=== PATIENT | female | born 1950 | race Caucasian/White ===

== ENCOUNTER 2017-01-12 09:36 | Day surgery (SDC) | payer MEDICARE, MEDICAID ==
[2017-01-12] VITALS (8 sets, daily range): BP systolic 118–158; BP diastolic 60–79; PULSE 62–82; RESP 12–16; O2SAT 93–100
[~2017-01-12] VITALS: Ht 166.4 cm; Wt 59.6 kg
[~2017-01-12 09:36] MED LIST: CANA100T PO; CITA40TA13 PO; CLON0.5T PO; Lactated Ringer's 1,000 ML IV ONE; METH5TAB5 PO; MULT-1018 PO; OLAN10TA19 PO; ROSU40TA PO
[2017-01-12] MEDS ORDERED: EPHEDrine/NS 5 mg/mL 5 mL Syringe ONE (09:37)
[2017-01-12] MEDS ORDERED: Rocuronium 10 mg/mL 5 mL Inj ONE (09:37)
[2017-01-12] MEDS ORDERED: Dexamethasone 4 mg/mL Inj ONE (09:37)
[2017-01-12] MEDS ORDERED: Propofol 10,000 mCg/mL 20 mL Inj ONE (09:37)
[2017-01-12] MEDS ORDERED: Ondansetron 2 mg/mL 2 mL Inj ONE (09:37)
[2017-01-12] MEDS ORDERED: fentaNYL-PF 50 mCg/mL 2 mL Inj ONE (09:37)
[2017-01-12] MEDS ORDERED: fentaNYL-PF 50 mCg/mL 2 mL Inj IVPUSH PRN (14:10)
[2017-01-12] MEDS ORDERED: Atropine 0.4 mg/mL Inj IVPUSH PRN (14:10)
[2017-01-12] MEDS ORDERED: Lactated Ringer's 500 ML IV PRN (14:10)
[2017-01-12] MEDS ORDERED: EPHEDrine Sulfate 50 mg/mL Inj IVPUSH PRN (14:10)
[2017-01-12] MEDS ORDERED: Phenylephrine 10,000 mCg/mL Inj IVPUSH PRN (14:10)
[2017-01-12] MEDS ORDERED: Labetalol 5 mg/mL 4 mL Inj IV PRN (14:10)
[2017-01-12] MEDS ORDERED: Lactated Ringer's 1,000 ML IV SCH (14:10)
[2017-01-12] MEDS ORDERED: Ondansetron 2 mg/mL 2 mL Inj IVPUSH PRN (14:10)
[2017-01-12] MEDS ORDERED: MetoCLOpramide 5 mg/mL 2 mL Inj IVPUSH PRN (14:10)
--- NOTE | 2017-01-12 14:10 | PCM.HPANE ---
Patient Data Surgeon Admitting Provider: Attending Provider:Umer Lundberg MD Primary Care Physician:Fabricio Fair MD Other Provider:TonaocMisa Anesthesia Reason for Visit Primary Hyperparathyroidism Ht/WT & BMI Height (Feet): 5 Height (Inches): 5.50 Weight (Kilograms): 59.600 Body Mass Index 21.00 Allergies Coded Allergies: codeine (Verified Allergy, Unknown, nausea/vomiting, 01/05/17) latex (Verified Allergy, Unknown, rash, 01/05/17) Past Anesthesia History Anesthesia History: Denies:: Abnormal Airway, Anesthesia Reactions, Difficult Intubation, Fam Anesthesia Reaction, Fam Malignant Hypertherm, Malignant Hyperthermia Diabetes History Hx Diabetes?: Yes Type of Diabetes: Type II Glycemic Control: Oral Medication Current Bedside Blood Glucose: 101 Medications Home Meds Incl Beta Igor: No Reported Medications Olanzapine 10 Mg [id number] Mg PO HS Ref 0 01/05/17 Multivitamin (Multi Vitamin Daily)1 Each Tablet1 Each PO DAILY 30 Days Ref 0 01/05/17 Methimazole 5 Mg Tablet7.5 Mg PO DAILY 30 Days 01/05/17 Clonazepam (Klonopin)0.5 Mg Tablet0.5-1 Mg PO TID PRN For Anxiety Ref 0 01/05/17 Rosuvastatin Calcium (Crestor)40 Mg [id number] Mg PO HS 30 Days Ref 0 01/05/17 Citalopram 40 Mg [id number] Mg PO DAILY 30 Days Ref 0 01/05/17 Discontinued Reported Medications Canagliflozin (Invokana)100 Mg [id number] Mg PO DAILY 01/05/17 History History of ENT Problems?: No HEENT History: Positive for:: Hearing Problem Denies:: Abnormal Airway Cataracts Difficult Intubation Dysphagia Glaucoma Sinus Problem TMJ Denture Type: None Teeth Condition: Within Normal Limits Hx of Heart Problems?: No Cardiovascular History: Denies:: AICD Abdominal Aortic Aneurism Atrial Fibrillation Cardiac Surgery Chest Pain Congestive Heart Failure Coronary Artery Disease Edema Heart Murmur Hypertension Irregular Heartbeat Pacemaker Peripheral Vascular Rheumatic Fever Thrombophlebitis Valvular Heart Disease Hx of Respiratory Problem?: No Respiratory History: Denies:: Asthma COPD Chest Surgery Cough Dyspnea Emphysema Hemoptysis Oxygen Administration Pneumonia Pulmonary Embolism Tuberculosis Use of C-PAP Machine Use of Inhalers / NEBS Hx Neurologic Problems?: No Neurological History: Denies:: Alzheimer's Disease CVA Dementia Dizziness Headaches Multiple Sclerosis Parkinson's Disease Peripheral Neuropathy Seizures TIA Hx of GI Problems?: No Gastrointestinal History: Denies:: Cirrhosis Diverticulitis Gall Bladder Disease Gastroesphageal Reflux Gastrointestinal Bleeding Heartburn Hepatitis Hiatal Hernia Liver Disease Rectal Bleeding Hx of Problems?: No Genitourinary History: Denies:: HX of Hemodialysis Kidney Stones Urinary Tract Infection HX of Peritoneal Dialysis: No Female Hx: Denies:: Currently Endometriosis Pelvic Inflammatory Problems with Breasts? Skin History: Denies:: History Skin Disorders? Pressure Ulcers Hx Musculoskeletal Problems?: No Musculoskeletal History: Denies:: Back Injury Degenerative Joint Fibromyalgia Joint Replacement Musculoskeletal Trauma Myasthenia Gravis Osteoarthritis Rheumatoid Arthritis Systemic Lupus Psycho Social History: Positive for:: Hx Depression Denies:: Anxiety Bipolar Disorder Suicide Attempt Hx Surgeries?: Yes Hx Any Other Health Problems?: Yes Other History: Positive for:: Endocrine Disease (parathyroid current admission problem) Denies:: Cancer Thyroid Disease (parathyroid) Hx Diabetes: YesBedside Blood Glucose: 101 Have You Smoked inLast 12 mo: Yes Stop/Bang S-Snoring: Do You Snore Loudly: No T-Tired: feel tired, fatigued: No O-Obsered: Observed not breath: No P-Blood Pressure: treated: No B- Body Mass Index > 35 kg/m2: No A- Age over 50: Yes N- Neck Large Circumference: No G- Gender Male: No SUHA Total Score: 1 Risk Assessment Category Category 1A: Patient has history of documented sleep apnea, and HAS NOT received any narcotic, sedative or anesthesia administration during this stay. Category 1B: Patient has history of documented sleep apnea, and HAS received any narcotic , sedative or anesthesia administration during this stay Category 2: Patient has SUSPECTED Obstructive Sleep Apnea, and HAS received any narcotic , sedative or anesthesia administration during this stay. Category 3: Patient has SUSPECTED Obstructive Sleep Apnea and HAS NOT received narcotic, sedative or anesthesia administration during this stay. Category 4: Outpatient in Procedural Areas with known sleep apnea or who screen positive for High Risk via the STOP/BANG questionnaire. Exam Exam Vital Signs Vital Signs Date Time Temp Pulse Resp B/P Pulse Ox O2 Delivery O2 Flow Rate FiO2 01/12/17 10:25 36.6 62 16 157/79 97 Room Air 01/12/17 10:03 36.6 62 16 157/79 97 Room Air General Appearance: Alert, Oriented X3, Cooperative, No Acute Distress HEENT/AIRWAY: MP 2, Neck Movement (FROM), Mouth Opening (3 FBMO) Lungs: Clear to Auscultation, Normal Air Movement Heart: Exam Unremarkable, Regular Rate/Rhythm, No Murmurs/Rubs/Gallops Meds/Labs/Diagnostics Admission Meds Current Medications Lactated Ringer's (Lr) 1,000 ml @ 120 mls/hr [id number] ONCE IV Last administered on 01/12/17t 09:50; Start 01/12/17 at 05:00; Stop 01/12/17 at 13:19 Bedside Blood Glucose: 101 Plan Impression Patient chart reviewed, patient interviewed and anesthestic plan with risks, benefits, and alternatives discussed, and informed consent obtained. NPO per Anesth. Guidelines: Yes ASA Physical Status: ASA2 Mod Systemic Disease Anesthetic Plan: GA Bene/Risks/Altern/Consents: Yes HP Complete Prior to Induction: Yes Rafael Washington MD Jan 12, 2017 12:45
[2017-01-12] MEDS ORDERED: Bupivacaine-MPF 0.5% W/EPI 30 mL Inj INFILTRATE ONE (14:22)
--- NOTE | 2017-01-12 15:22 | PCM.SURGOP ---
Surgical Operative Report Date of Service: Jan 12, 2017 Pre Operative Diagnosis Primary hyperparathyroidism Post Operative Diagnosis Same, right superior parathyroid adenoma Procedure: Parathyroid exploration Surgeon and Disabilities Caregiver: Surgeon: Umer Lundberg MD Assistants: Jesse Natarajan MD PGY-3; Faye Keys DO PGY-1 Indication for Procedure 66-year-old woman who has been diagnosed with primary hyperparathyroidism. Her highest documented PTH was 111, with a calcium of 10.4. She has known osteoporosis, with a T score of -3.0 in the left femoral neck. She has never had a pathologic fracture. She has never had kidney stones. She does admit to some anxiety and depression. Her imaging studies were both suggestive of a right superior parathyroid adenoma on ultrasound and nuclear medicine parathyroid imaging study. She also had a 3.2 cm left inferior thyroid nodule and a right mid thyroid nodule measuring 1.8 cm. Both were biopsied, which came back benign, [place] II. After discussion of risks and benefits, she agreed to proceed with parathyroid exploration. Findings: The right superior parathyroid adenoma was found measuring 2.2 x 1.2 x 0.5 cm. The right inferior parathyroid gland was visualized, which was normal. Procedure Details After smooth induction of general endotracheal anesthesia, she was placed in the modified beachchair position, and was prepped and draped in wide sterile fashion. A procedural pause was performed according to the SCOAP checklist, and all were found to be in agreement. A transverse incision was made in the skin lines below the level of the cricoid cartilage. Dissection was carried down through the subcutaneous tissue until the platysma muscle was divided. Subplatysmal skin flaps were raised superiorly and inferiorly. The median raphae was incised. The right sternal hyoid and sternal thyroid muscles were sequentially elevated off the underlying right thyroid lobe. The right middle thyroid vein was divided with the LigaSure device. Once the right internal jugular vein was identified, a blood sample was drawn from it with a 27-gauge needle, being sent for stat PTH, which came back at 67. The right thyroid lobe was retracted medially. A normal right inferior parathyroid gland was visualized on the posterior surface of the inferior thyroid lobe on the right. Just superior to the right inferior thyroid artery, a right superior parathyroid adenoma was seen. This had a discrete fat plane between it and the right thyroid lobe. It was dissected free from the surrounding tissues with the LigaSure device. It had an obvious blood supply coming off the right inferior thyroid artery off its inferomedial aspect, which was divided with the LigaSure device. Ex vivo, the right superior parathyroid gland measured 2.2 x 1.2 x 0.5 cm. The right recurrent laryngeal nerve was probably visualized posterior to the inferior thyroid artery. Hemostasis was adequate. The right superior parathyroid adenoma was sent for permanent pathology. The midline strap muscles were reapproximated with interrupted 3-0 Vicryl suture. The latissimus muscle was closed with interrupted 3-0 Vicryl suture. The skin incision was closed with a running 4-0 Monocryl subcuticular stitch. Dermabond was applied to the skin as a dressing. At the end of the case all needle and sponge counts were correct 2. The patient was awakened from anesthesia without difficulty, and taken to the recovery room in satisfactory condition, having tolerated the procedure well. A stat PTH will be checked in the recovery room. Complications There were no periprocedural complications identified. Surgical Specimen Removed: Yes Specimen sent to Pathology: Yes Surgical Specimen description: Right superior parathyroid adenoma Anesthetic Plan: GA Grafts, Implants: None Output, Estimated Blood Loss: 10 Blood Administration during benitez: No Drains: None Catheters: None copies to: Vish Roldan MD; Fabricio Fair MD, Joshua D MD Jan 12, 2017 15:22
[2017-01-12] MEDS ORDERED: oxyCODONE-Acetamin 5-325 mg Tablet PO PRN (15:35)
--- NOTE | 2017-01-12 15:39 | PCM.DISURG ---
Surgical Discharge Instruction Date of Service Jan 12, 2017 Dates of Hospitalization Date of Hospital Admission Providers Admitting Physician: Primary Care Physician: Fabricio Fair MD Attending Physician: Umer Lundberg MD Discharge Diagnosis Post Operative diagnosis Same, right superior parathyroid adenoma Diet Discharge Diet: No restrictions Activity Discharge Activity-General: Be up and about, Activity as pain allows, No driving while taking narcotic Dressing and Incisional Care Dressing Instructions: Liquid skin glue will start to peel in 7-10 days Hygiene: May shower, DO NOT soak incision under water, NO bathtub, hot tub or whirlpool Follow Up Plan Follow Up Plan Follow up in the general surgery clinic in 2-3 weeks. Call your provider for: Fever, Chills, Wound redness, Increasing wound pain, Discharge @ incision, pus discharge Janusz Natarajan MD Jan 12, 2017 15:39
--- NOTE | 2017-01-14 11:07 | PATH ---
SURGICAL PATHOLOGY Attending Physician:Shirley Becker CASE STATUS: Signed Out PATIENT NAME: THU MCNEAL PID: [id number] : 1950 DATE COLLECTED:01/12/2017 23:04 SPECIMEN: Parathyroid Gland CLINICAL HISTORY: HYPERPARATHYROIDISM 1). PARATHYROID ADENOMA RIGHT SUPERIOR, 2.2 X 1.2 X 0.5, OUT AT 14:59 FINAL DIAGNOSIS: 1.RIGHT SUPERIOR PARATHYROID GLAND: PARATHYROID ADENOMA (SPECIMEN WEIGHT 1.0 GRAMS). ICD10 D35.1 GROSS DESCRIPTION: The specimen is received in formalin, labeled with the patient's name, sublabeled as right superior parathyroid + adenoma and consists of a pale neal, focally dark maroon, smooth shiny rubbery parathyroid gland (1.0 g, 2.2 x 1.5 x 0.5 cm). The parenchyma is lobular and homogenous. No nodules, masses or lesions are identified. Section code: (A-B) parathyroid gland, longitudinally trisected. Specimen entirely submitted. 01/13/17 JM MICRO DESCRIPTION: See diagnosis. ICD-9 CODES: CPT CODES: 1: 30185 Electronically Signed Out Jeffrey Castañeda MD [facility] [address], [place] [address] Technical component performed at [facility], [facility] [address], [place], [address]
== END 2017-01-12 23:59 | disposition home or self-care (01) ==
LOC: SAS 09:36
PROVIDERS: ATTEND Student in an Organized Health Care Education/Training Program
DX: D35.1 Benign neoplasm of parathyroid gland (principal); E21.0 Primary hyperparathyroidism; F41.9 Anxiety disorder, unspecified; F32.9 Major depressive disorder, single episode, unspecified; M81.0 Age-related osteoporosis without current pathological fracture; E11.9 Type 2 diabetes mellitus without complications; E78.5 Hyperlipidemia, unspecified; F17.210 Nicotine dependence, cigarettes, uncomplicated
CPT/HCPCS: 36415; 60500; 83970; J1100; J1885; J2405; J3010; J7120